=== PATIENT | male | born 1945 | race Caucasian/White ===

== ENCOUNTER 2017-05-20 04:08 | Emergency (ER) | payer SELFPAY ==
[~2017-05-20] VITALS: Ht 170.2 cm; Wt 97.2 kg
[2017-05-20 04:17] VITALS: BP 139/74
[2017-05-20] MEDS ORDERED: PERCOCET 10/31 COMBO PO (04:26)
== END 2017-05-20 04:47 | disposition left against medical advice (07) | DRG 951 ==
LOC: ED 04:08 → LWOBS 04:47
DX: Z91.19 Patient's noncompliance with other medical treatment and regimen (principal)